=== PATIENT | female | born 1990 | race Two or more races ===

== ENCOUNTER 2022-01-24 13:59 | Emergency (ER) | payer MEDICAID, OTHER ==
[~2022-01-24] VITALS: Ht 154.9 cm; Wt 73.0 kg
[2022-01-24 18:46] VITALS: BP 101/69
== END 2022-01-24 18:46 | disposition left against medical advice (07) ==
LOC: ER 13:59 → EDBD 13:59 → ER 18:46
DX: R55 Syncope and collapse (principal); R53.1 Weakness; Z53.21 Procedure and treatment not carried out due to patient leaving prior to being seen by health care provider

== ENCOUNTER 2022-07-03 09:37 | Emergency (ER) | payer MEDICAID ==
[~2022-07-03] VITALS: Ht 154.9 cm; Wt 74.2 kg
[2022-07-03 10:42] LABS: Basophils # (auto) 0 10 ^3/uL (0-0.2); Basophils % (auto) 0.8 % (0.0-2.0); Eosinophils # (auto) 0.1 10 ^3/uL (0-0.8); Hematocrit 40.5 % (36.0-46.0); Lymphocytes # (auto) 1.8 10 ^3/uL (0.4-5.4); Lymphocytes % (auto) 31.7 % (10.0-50.0); Mean Corpuscular Hemoglobin 29.8 pg (28.0-32.0); Mean Corpuscular Hgb Conc. 34.5 g/dL (32.0-36.0); Mean Corpuscular Volume 86.5 fL (80.0-100.0); Monocytes # (auto) 0.3 10 ^3/uL (0-1.3); Monocytes % (auto) 5.7 % (0.0-12.0); Neutrophils # (auto) 3.4 10 ^3/uL (1.6-8.6); Neutrophils % (auto) 60.8 % (37.0-80.0); Nucleated Red Blood Cells % 0.2 %; Red Blood Cells 4.68 10^6/uL (4.0-5.20); Red Cell Distribution Width 13.8 % (11.8-14.3); White Blood Cell 5.6 10^3/uL (4.4-10.8)
[2022-07-03 11:05] LABS: Urine Bacteria MOD /hpf (None Seen); Urine Blood Negative /uL (Negative); Urine Hyaline Cast FEW /lpf (0 - 2); Urine Mucus FEW (None Seen); Urine Specific Gravity 1.025 (1.001-1.035); Urine WBC 7 /hpf (0 - 5)
[2022-07-03 11:19] LABS: BUN/Creatinine Ratio 15.4; Calcium 8.5 mg/dL (8.5-10.1); Potassium 4.2 mmol/L (3.5-5.1)
[2022-07-03] MEDS ORDERED: IBUP800T27 PO (11:59)
[2022-07-03] MEDS ORDERED: ACETAMINOPHEN 500 MG TAB PO ONE (12:00)
[2022-07-03 12:17] VITALS: BP 103/68
== END 2022-07-03 12:19 | disposition home or self-care (01) ==
LOC: ER 09:37
DX: S46.912A Strain of unspecified muscle, fascia and tendon at shoulder and upper arm level, left arm, initial encounter (principal); R55 Syncope and collapse; W10.9XXA Fall (on) (from) unspecified stairs and steps, initial encounter; Y93.89 Activity, other specified; Y92.89 Other specified places as the place of occurrence of the external cause; Y99.8 Other external cause status
CPT/HCPCS: 36415; 73030; 80048; 81001; 81025; 82962; 84484; 85025; 93005